=== PATIENT | male | born 1955 | race Caucasian/White ===

== ENCOUNTER 2021-04-15 15:24 | Emergency (ER) | payer OTHER ==
[~2021-04-15] VITALS: Ht 167.6 cm; Wt 74.0 kg
--- NOTE | 2021-04-15 16:27 | NUR ---
[employer]: Pt to room from lobby at this time.
[2021-04-15] MEDS ORDERED: KETOROLAC 30 MG/1 ML ONE (17:39)
[2021-04-15] MEDS ORDERED: LIDOCAINE-MPF 1%, 5ML ONE (17:39)
[2021-04-15] MEDS ORDERED: HYDROcodone/APAP 5/325 TABLET ONE (17:40)
--- NOTE | 2021-04-15 17:45 | NUR ---
Pt states "yeah I'm in pain" when told his BP.
[2021-04-15] MEDS ORDERED: HYDROcodone/APAP 5/325 TABLET PO ONE (18:00)
[2021-04-15] MEDS ORDERED: KETOROLAC 30 MG/1 ML IM ONE (18:00)
[2021-04-15] MEDS ORDERED: LIDOCAINE 1%, 10ML INFIL ONE (18:00)
--- NOTE | 2021-04-15 18:38 | NUR ---
MD Abarca at bedside for procedure.
--- NOTE | 2021-04-15 18:53 | NUR ---
REPORT FROM VICTORIA, ALL QUESTIONS ADDRESSED TRANSFER OF CARE AT THIS TIME.
--- NOTE | 2021-04-15 19:15 | NUR ---
MD Abarca made aware of BP and that pt is still in pain.
[2021-04-15 20:45] VITALS: BP 191/91
[2021-04-15] MEDS ORDERED: MORPHINE SULFATE 4 MG/ML, 1ML ONE (20:52)
[2021-04-15] MEDS ORDERED: MORPHINE SULFATE 4 MG/ML, 1ML IVPush PRN (21:00)
--- NOTE | 2021-04-15 22:08 | NUR ---
Patient/Caregiver given discharge instructions and they have confirmed that they understand the instructions. Patient ambulatory with steady gait. NAD, all questions answered appropriately, denies additional needs at this time. No personal belongings left in room after discharge.
== END 2021-04-15 22:10 | disposition home or self-care (01) ==
LOC: ED 17:41
DX: M11.261 Other chondrocalcinosis, right knee (principal); I10 Essential (primary) hypertension
CPT/HCPCS: 20611; 73564; 85810; 87070; 87075; 87205; 89050; 89060; 93971; 96372; 96374; 99285; J1885; J2270; 99284